=== PATIENT | female | born 1945 | race Native Hawaiian/Other Pacific Islander ===

== ENCOUNTER 2016-07-15 14:48 | Outpatient (CLI) | payer OTHER ==
[~2016-07-15 14:48] MED LIST: ALPR0.5T24 PO; CARAFATE1 GM PO; CIPRO250 MG PO; EAC PO; FLUC150T PO; FURO20TA67 PO; IRBE150T8 PO; IRO PO; L-LYSINE500 MG PO; LORTAB PO; MOBIC15 MG PO; NEURONTIN 100M100 MG PO; OMEP40CA PO; PANT40TA PO; POTASSIUM CHLO10 ME2 PO; PRENATAL PLUS PO; PROMETHAZINE25 MG PO; PYRIDIUM100 MG PO; SIMV20TA2 PO; TRAM50TA PO; ZANTAC300 MG PO
== END 2016-07-15 19:30 | disposition home or self-care (01) ==
LOC: CT 14:48
DX: R10.84 Generalized abdominal pain (principal); K76.0 Fatty (change of) liver, not elsewhere classified

== ENCOUNTER 2017-03-11 14:03 | Outpatient (CLI) | payer OTHER | END 2017-03-11 19:05 | disposition home or self-care (01) | LOC: RAD 14:03 | DX: M54.89 Other dorsalgia (principal); M54.6 Pain in thoracic spine ==

== ENCOUNTER 2017-12-25 17:22 | Outpatient (CLI) | payer OTHER | END 2017-12-25 23:26 | disposition home or self-care (01) | LOC: RAD 17:22 | DX: M54.6 Pain in thoracic spine (principal) ==

== ENCOUNTER 2018-01-13 14:02 | Outpatient (CLI) | payer OTHER | END 2018-01-13 23:28 | disposition home or self-care (01) | LOC: MRI 14:02 | DX: G89.29 Other chronic pain (principal) ==

== ENCOUNTER 2018-06-25 18:00 | Outpatient (CLI) | payer OTHER | END 2018-06-25 20:00 | disposition home or self-care (01) | LOC: RAD 18:00 | DX: M54.5 Low back pain (principal) ==

== ENCOUNTER 2018-11-09 16:47 | Emergency (ER) | payer OTHER ==
[~2018-11-09] VITALS: Ht 152.4 cm; Wt 136.1 kg
[2018-11-09 18:30] VITALS: BP 152/67; TEMP 98.3
== END 2018-11-09 18:30 | disposition home or self-care (01) ==
LOC: ED 16:47
DX: M25.511 Pain in right shoulder (principal)
CPT/HCPCS: 96372; 99282; J1885

== ENCOUNTER 2019-12-21 16:30 | Outpatient (CLI) | payer OTHER | END 2019-12-22 00:01 | disposition home or self-care (01) | LOC: RAD 16:30 | DX: R06.02 Shortness of breath (principal) ==

== ENCOUNTER 2020-02-04 16:54 | Emergency (ER) | payer OTHER ==
[~2020-02-04] VITALS: Ht 152.4 cm; Wt 150.6 kg
[2020-02-04 17:10] VITALS: BP 119/79; TEMP 98.4
== END 2020-02-04 17:57 | disposition home or self-care (01) ==
LOC: ED 16:54
DX: M25.559 Pain in unspecified hip (principal)
CPT/HCPCS: 99281

== ENCOUNTER 2022-08-06 09:50 | Outpatient (CLI) | payer OTHER ==
[2022-08-06 10:14] LABS: PLATELET COUNT 370 K/uL (152-353)
[2022-08-06 10:36] LABS: POTASSIUM 4.4 mmol/L (3.6-5.2)
== END 2022-08-06 20:53 | disposition home or self-care (01) ==
LOC: LABW 09:50 → EDBD 09:50 → LABW 20:53
PROVIDERS: ATTEND Nurse Practitioner Family
DX: K21.9 Gastro-esophageal reflux disease without esophagitis (principal); I10 Essential (primary) hypertension; G89.29 Other chronic pain; F41.8 Other specified anxiety disorders; M54.42 Lumbago with sciatica, left side; E66.09 Other obesity due to excess calories; G62.89 Other specified polyneuropathies; E66.01 Morbid (severe) obesity due to excess calories; E55.9 Vitamin D deficiency, unspecified; R73.9 Hyperglycemia, unspecified; R53.82 Chronic fatigue, unspecified; G47.00 Insomnia, unspecified; E78.49 Other hyperlipidemia
CPT/HCPCS: 36415; 80053; 80061; 82306; 83036; 84439; 84443; 85027

== ENCOUNTER 2022-10-16 15:38 | Outpatient (CLI) | payer OTHER | END 2022-10-16 20:12 | disposition home or self-care (01) | LOC: US 15:38 | PROVIDERS: ATTEND Nurse Practitioner Family | DX: E66.09 Other obesity due to excess calories (principal); R13.19 Other dysphagia ==